=== PATIENT | female | born 1955 | race Caucasian/White ===

== ENCOUNTER 2020-01-17 06:09 | Outpatient (CLI) | payer BC ==
[2020-01-17 11:18] LABS: Hemoglobin 14.4 g/dL (12.0-16.0); Mean Corpuscular HGB CONC 32.6 G/DL (32.0-36.0); Mean Corpuscular Hemoglobin 30.1 PG (27.0-33.0); Mean Corpuscular Volume 92.5 fl (80.0-100.0); Mean Platelet Volume 9.3 fl (7.4-10.4); Platelet Count 308 10x3/uL (130-400); RBC Distribution Width 12.6 % (11.5-14.5); Red Blood Cell (RBC) Count 4.78 10x6/uL (3.90-5.20)
[2020-01-17 11:38] LABS: Anion Gap 15 mmol/L (10-20); BUN (Urea Nitrogen) 23 mg/dL (9.8-20.1); Calc. Creatinine Clearance 0 mL/min (70-130); Calcium 9.3 mg/dL (7.8-10.44); Carbon Dioxide 23 mmol/L (23-31); Chloride 106 mmol/L (98-107); Estimated GFR-MDRD 65; Glucose 98 mg/dL (80-115); Potassium 4.4 mmol/L (3.5-5.1); Sodium 140 mmol/L (136-145)
[2020-01-18 12:05] LABS: SARS-CoV-2 MS2 Positive; SARS-CoV-2 N Gene Negative; SARS-CoV-2 S Gene Negative; SARS-CoV-2 by NAA Not Detected (NotDetected); SARS-CoV-2 orf1ab Negative
== END 2020-01-17 06:10 | disposition home or self-care (01) ==
LOC: LABBT 06:09
PROVIDERS: ATTEND Neurological Surgery
DX: Z01.818 Encounter for other preprocedural examination (principal); M43.16 Spondylolisthesis, lumbar region; Z20.828 Contact with and (suspected) exposure to other viral communicable diseases
CPT/HCPCS: 80048; 85027; 87635; 93005; 93010; U0003

== ENCOUNTER 2020-01-17 11:00 | Inpatient (IN) | payer BC ==
[2020-01-22] MEDS ORDERED: Fentanyl 250 MCG/5 ML VIAL ONE (06:50)
[2020-01-22] MEDS ORDERED: Scopolamine 1.5 mg/72 hour Patch ONE (07:14)
[2020-01-22] MEDS ORDERED: Famotidine/PF 20 mg/2ml Vial ONE (07:24)
[2020-01-22] MEDS ORDERED: SUGAMMADEX SODIUM 200 MG/2 ML VIAL ONE (08:03)
[2020-01-22] MEDS ORDERED: Promethazine HCl 25 MG/ML VIAL IM PRN ×2 (09:18→16:45)
[2020-01-22] MEDS ORDERED: HYDROmorphone 2 MG/ML VIAL SLOW IVP PRN (09:18)
[2020-01-22] MEDS ORDERED: Promethazine HCl 25 MG/ML VIAL SLOW IVP PRN (09:18)
[2020-01-22] MEDS ORDERED: Ondansetron HCl/PF 4 MG/2 ML Vial IVP PRN (09:18)
--- NOTE | 2020-01-22 09:19 | OP ---
DATE OF PROCEDURE: 01/22/2020 LINE TENDER FLAKEBOARD: Sayad Vides PA-C PROCEDURES PERFORMED: Removal of hardware L4-L5, exploration of spinal fusion L4-L5, L3-L4 laminectomy, posterolateral arthrodesis, demineralized bone matrix, local morselized autograft, pedicle screw instrumentation L3 through L5. DESCRIPTION OF PROCEDURE: The patient was brought to the operating room and intubated. She was rolled in a prone position on gel-filled chest rolls. The previous incision was reopened and extended superiorly exposing L3 through L5. The previous hardware was identified and exposed. The nuts and rods were removed. The fusion was explored and I could not be convinced as to whether it was solid. We next performed L3-L4 laminectomy and completely decompressed the neural elements. Pedicle screws were then placed at L3 bilaterally using lateral fluoroscopic guidance. The estephania was then secured from L3 through L5 to the screws, connected by nuts, which were final tightened. The wound was then extensively irrigated and MAC hemostasis was secured. A combination of demineralized bone matrix and local morselized autograft was laid over the lamina and posterolateral surfaces for the purpose of arthrodesis. Vancomycin powder was applied and the wound was closed in anatomic layers over drain. Job ID: [id number]
[2020-01-22] MEDS ORDERED: Fentanyl 100 MCG/2 ML VIAL ONE ×3 (09:23→14:50)
[2020-01-22] MEDS ORDERED: Promethazine HCl 25 MG/ML VIAL ONE (10:25)
[2020-01-22] MEDS ORDERED: Dexamethasone 20 MG/5 ML VIAL ONE (13:56)
[2020-01-22] MEDS ORDERED: Rocuronium Bromide 10 MG/ML (10ML VIAL) ONE (13:56)
[2020-01-22] MEDS ORDERED: PROPOFOL 200 MG/20 ML VIAL ONE (13:56)
[2020-01-22] MEDS ORDERED: PHENYLEPHRINE-NS 100 MCG/ML 10 ML SYRINGE ONE (13:56)
[2020-01-22] MEDS ORDERED: Ondansetron PF 4 MG/2 ML Vial ONE (13:56)
[2020-01-22] MEDS ORDERED: ePHEDrine 50 MG/ML VIAL ONE (13:56)
[2020-01-22] MEDS ORDERED: Lidocaine 1% PF 5 ML VIAL ONE (13:56)
[2020-01-22] MEDS ORDERED: Ketorolac Tromethamine 30 MG/ML VIAL ONE (13:56)
[2020-01-22] MEDS ORDERED: Ondansetron PF 4 MG/2 ML Vial IM PRN (16:39)
[2020-01-22] MEDS ORDERED: Morphine 4 MG/ML VIAL SLOW IVP PRN (16:45)
[2020-01-22] MEDS ORDERED: Milk Of Magnesia 30 ML UDCUP PO PRN (16:45)
[2020-01-22] MEDS ORDERED: Promethazine 25 MG TAB PO PRN (16:45)
[2020-01-22] MEDS ORDERED: traMADol HCl 50 MG TAB PO PRN (16:45)
[2020-01-22] MEDS ORDERED: Mag-Al 1200 mg/1200 mg/30 ML UDCUP PO PRN (16:45)
[2020-01-22] MEDS ORDERED: tiZANidine HCl 4 MG TAB PO PRN (16:45)
[2020-01-22] MEDS ORDERED: diphenhydrAMINE 25 MG CAP PO PRN (16:45)
[2020-01-22] MEDS ORDERED: Acetaminophen/Codeine 30-300mg Tablet PO PRN ×2 (16:45)
[2020-01-22] MEDS ORDERED: diphenhydrAMINE 50 MG/ML VIAL IVP PRN (16:45)
[2020-01-22] MEDS ORDERED: Morphine 2 MG/ML VIAL SLOW IVP PRN (16:45)
[2020-01-22] MEDS ORDERED: Promethazine HCl 12.5 MG SUPP PR PRN (16:45)
[2020-01-22 17:14] VITALS: BMI 25.0
[2020-01-22] MEDS ORDERED: Ondansetron PF 4 MG/2 ML Vial SLOW IVP PRN (17:43)
[2020-01-22] MEDS: Sodium Chloride 0.9% 1,000 ML IV SCH (19:22)
[2020-01-22] MEDS: Gabapentin 300 MG CAP PO SCH (22:32)
[2020-01-23] MEDS: CEFAZOLIN 2 GM in Premix Bag 1 BAG IVPB SCH ×4 (00:06→23:34)
--- NOTE | 2020-01-23 06:56 | PRG ---
DATE OF SERVICE: 01/23/2020 SUBJECTIVE: Patient is postoperative day #1 status post removal of hardware, L3-L4 decompression and fusion. Following the surgery, she was transitioned to the floor, where her pain has been well controlled and she is requiring minimal pain medications. She is tolerating regular diet and she is voiding appropriately. She has been somewhat slow to mobilize, but is walking short distance back and forth in her room to the bathroom. She has had some issues with postoperative nausea, but this appears to be improved with a scopolamine patch today. She is planning on trying to eat some breakfast this morning, but had previously been tolerating oral liquids and crackers just fine. Her SUNITA drain had 80 mL out overnight. OBJECTIVE: On exam this morning, she is awake, alert, in no acute distress. She has free active range of motion of all extremities. No focal motor weakness. There is a small amount of bright red blood in the SUNITA. She is doing well, although somewhat slow to mobilize and has some issues with postoperative nausea. We will get her working with Physical Therapy today and I will monitor the SUNITA drain again. Anticipate home tomorrow. Job ID: [id number]
[2020-01-23] MEDS: Sodium Chloride 0.9% 1,000 ML IV SCH ×2 (07:04→17:52)
[2020-01-23] MEDS: Multivit, Therapeutic 1 TAB PO SCH (08:12)
[2020-01-23] MEDS: traMADol HCl 50 MG TAB PO PRN ×3 (08:13→23:34)
[2020-01-23] MEDS: Gabapentin 300 MG CAP PO SCH (20:36)
[2020-01-24 05:22] VITALS: TEMP 98.2
--- NOTE | 2020-01-24 06:22 | DIS ---
DATE OF ADMISSION: 01/22/2020 DATE OF DISCHARGE: 01/24/2020 PROCEDURE: Removal of hardware L3-L4 decompression and fusion. DISCHARGE SUMMARY: The patient is a 64-year-old female, recently evaluated in our office for progressive back pain and claudicatory leg pain. She was found to have increased degenerative changes and stenosis above her prior fusion at L3-L4. She underwent removal of hardware and extension of her lumbar fusion at L3-L4. Following the surgery, she was transitioned to the floor, where her pain has been well controlled with p.o. medications, she is tolerating a regular diet, and she is voiding appropriately. She is ambulating easily in the hallways without difficulty. She had a SUNITA drain placement and its output trended down over the first two days. This was removed on postoperative day #2. We will dismiss to home. I have discussed home care precautions. We will follow up in 2 weeks. Scripts for tramadol, Zanaflex, and Keflex provided. BMP was checked prior to discharge. Job ID: [id number]
[2020-01-24 07:25] VITALS: BP 135/78
[2020-01-24] MEDS: CEFAZOLIN 2 GM in Premix Bag 1 BAG IVPB SCH (07:46)
[2020-01-24] MEDS: traMADol HCl 50 MG TAB PO PRN (07:58)
[2020-01-24] MEDS: Multivit, Therapeutic 1 TAB PO SCH (07:59)
== END 2020-01-24 09:49 | disposition home or self-care (01) | DRG 460 ==
LOC: SURG A 01-22 06:00 → T4-B 01-22 15:29
PROVIDERS: ADMIT Neurological Surgery; ATTEND Neurological Surgery
PROC: 0SG1071 Fusion of 2 or more Lumbar Vertebral Joints with Autologous Tissue Substitute, Posterior Approach, Posterior Column, Open Approach (ICD-10-PCS; principal; 2020-01-22)
PROC: 01NB0ZZ Release Lumbar Nerve, Open Approach (ICD-10-PCS; 2020-01-22)
PROC: 0SP004Z Removal of Internal Fixation Device from Lumbar Vertebral Joint, Open Approach (ICD-10-PCS; 2020-01-22)
DX: M48.062 Spinal stenosis, lumbar region with neurogenic claudication (principal); M43.16 Spondylolisthesis, lumbar region; Z20.828 Contact with and (suspected) exposure to other viral communicable diseases; Z96.642 Presence of left artificial hip joint; J30.2 Other seasonal allergic rhinitis; R11.0 Nausea; Z90.710 Acquired absence of both cervix and uterus; Z79.899 Other long term (current) drug therapy
CPT/HCPCS: 76000; C1713; C1768; J0690; J1100; J1885; J2405; J2550; J2704; J3010; J3370; J3490; S0028

== ENCOUNTER 2020-02-06 12:44 | Outpatient (CLI) | payer BC ==
--- NOTE | 2020-02-06 14:03 | RAD ---
LUMBAR SPINE RADIOGRAPHS 02/06/20 PROVIDED CLINICAL HISTORY: Postop. FINDINGS: Five nonribbearing lumbar type vertebral bodies are demonstrated. There is grade I anterolisthesis of L3 on L4 and L4 on L5. Bilateral pedicle screws and vertical interconnecting rods are noted spanning L3 through L5. Laminectomy changes are seen at these levels. Vertebral body heights appear preserved . IMPRESSION: Postoperative change. POS: AH
== END 2020-02-06 12:45 | disposition home or self-care (01) ==
LOC: TBSIIMAG 12:44
PROVIDERS: ATTEND Neurological Surgery
DX: M43.16 Spondylolisthesis, lumbar region (principal); Z98.890 Other specified postprocedural states
CPT/HCPCS: 72100